=== PATIENT | female | born 1975 | race Caucasian/White ===

== ENCOUNTER 2019-03-16 16:01 | Emergency (ER) | payer BC ==
--- NOTE | 2019-03-16 16:41 | EDM.PDOC ---
ED HPI GENERAL MEDICAL PROBLEM - General Chief Complaint: Upper Extremity Injury/Pain Stated Complaint: shoulder pain Time Seen by Provider: 03/16/19 16:12 Source of Information: Reports: Patient History Limitations: Reports: No Limitations - History of Present Illness INITIAL COMMENTS - FREE TEXT/NARRATIVE: Patient comes to ER with complaint of right upper back pain that is made worse when she moves her shoulder or coughs. Deep breathing does not cause pain. Initially noticed some discomfort in this area on Mar 09 when she fell off a horse. Denies other injuries. She thought the discomfort would get better, and things did improve. However starting yesterday, she has noticed increasing pain near right scapular area/just below that sometimes wraps around her side. Made worse when she reaches behind to tie her apron, also when she bends over forward to pick something up. Did take single dose NSAID this morning but did not seem to help much. No previous history of similar pain. Denies hitting head/vision change/facial trauma/headache. No SOB/new cough/hematemesis. No chest pain. No abdominal pain/nausea/emesis/bowel changes. No hematuria/urinary complaints. Denies limb pain/paresthesias/focal weakness No bruising/skin changes. Does not have primary provider. Denies chronic medical problems. 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: NSAIDS Right Shoulder Pain Score (Numeric/FACES): 8 - Related Data Allergies Allergy/AdvReac Type Severity Reaction Status Date / Time No Known Allergies Allergy Verified 03/16/19 16:16 Home Meds: Home Meds Cyclobenzaprine [Flexeril] 10 mg PO TID PRN #21 tab 03/16/19 [Rx] Past Medical History - Past Health History Medical/Surgical History: Denies Medical/Surgical History Social & Family History - Tobacco Use Smoking Status *Q: Never Smoker - Caffeine Use Caffeine Use: Reports: Soda - Alcohol Use Alcohol Use Frequency: Socially, Weekly - Recreational Drug Use Recreational Drug Use: No Drug Use in Last 12 Months: No Review of Systems - Review of Systems Review Of Systems: ROS reveals no pertinent complaints other than HPI. ED EXAM, GENERAL - Physical Exam Exam: See Below Exam Limited By: No Limitations General Appearance: Alert, WD/WN, No Apparent Distress Eye Exam: Bilateral Eye: EOMI, PERRL Ears: Normal External Exam Nose: No: Nasal Deformity, Nasal Swelling, Nasal Drainage Throat/Mouth: Normal Lips, Normal Voice, No Airway Compromise Head: Atraumatic, Normocephalic Neck: Normal Inspection, Supple, Non-Tender, Full Range of Motion. No: Tender Lateral, Tender Midline Respiratory/Chest: No Respiratory Distress, Lungs Clear, Normal Breath Sounds, No Accessory Muscle Use, Chest Non-Tender Cardiovascular: Regular Rate, Rhythm, No Edema, No Murmur GI/Abdominal: Normal Bowel Sounds, Soft, Non-Tender, No Distention (Female) Exam: Deferred Rectal (Female) Exam: Deferred Back Exam: Other (Unable to pinpoint a specific area of tenderness with palpation of patient's spine/scapula and remaining soft tissue of back/right side. Patient able to easily raise arms over head, and in front of her. Able to touch her hands behind her back, although this did cause some discomfort in the right upper back when she did so. Good upper body strength with arm abduction and adduction with resistance. No crepitus. Ribs non-tender. ) Extremities: Normal Inspection, Normal Range of Motion, Normal Capillary Refill. No: Limited Range of Motion, Increased Warmth, Mottled, Pallor, Redness Neurological: Alert, Oriented, Normal Cognition, Normal Gait, No Motor/Sensory Deficits Psychiatric: Normal Affect, Normal Mood Skin Exam: Warm, Dry, Intact, Normal Color Course - Vital Signs Last Recorded V/S: Last Vital Signs Temp 36.4 C 03/16/19 16:02 Pulse 70 03/16/19 16:02 Resp 20 03/16/19 16:02 BP 127/78 03/16/19 16:02 Pulse Ox - Re-Assessments/Exams Free Text/Narrative Re-Assessment/Exam: 03/16/19 16:52 No focal area of tenderness noted on exam. Patient has good range of motion in both upper extremities. Suspect muscle spasm/soft tissue cause for discomfort. Patient declined xrays at this time. Recommend Flexeril PRN for spasm in addition to Aleve and Tylenol. Recommend patient consider seeing the clinic and getting a referral to physical therapy for evaluation and recommendations for exercises/treatment of complaint. Precautions reviewed. To follow up as needed. Departure - Departure Time of Disposition: 16:45 Disposition: Home, Self-Care 01 Condition: Good Clinical Impression: Upper back pain on right side - Discharge Information *PRESCRIPTION DRUG MONITORING PROGRAM REVIEWED*: Not Applicable *COPY OF PRESCRIPTION DRUG MONITORING REPORT IN PATIENT CARISA: Not Applicable Prescriptions: Cyclobenzaprine [Flexeril] 10 mg PO TID PRN #21 tab PRN Reason: Spasms Instructions: Shoulder Pain, [id number], Back Exercises, [id number] Referrals: PCP,Unknown [Ordering Only Provider] - Forms: ED Department Discharge Additional Instructions: Gentle stretching and range of motion exercises recommended. Consider referral for PT from hospital clinic. Consider chiropractic treatment. OK to take 2 Aleve with food every 12 hours to help with pain and inflammation as discussed. OK to take Tylenol with the Aleve. OK to take the Flexeril (for spasms) with the Aleve and Tylenol. If you go to [place], consider picking up CBD oil or salve to help with discomfort. Arnica can also help. These you can find at the [employer] food store. Ice/heat may be helpful. Follow up as needed in ER or at clinic if you continue to have problems.
== END 2019-03-16 17:05 | disposition home or self-care (01) ==
LOC: LL.ED 16:01
DX: M54.6 Pain in thoracic spine (principal)
CPT/HCPCS: 99283